=== PATIENT | male | born 1990 | race Caucasian/White ===

== ENCOUNTER 2017-01-19 13:48 | Emergency (ER) | payer OTHER ==
[~2017-01-19] VITALS: Ht 165.1 cm; Wt 72.6 kg
[2017-01-19] MEDS ORDERED: BACTRIM DS TAB1 EACH PO (15:38)
[2017-01-19] MEDS ORDERED: IBUPROFEN 800800 M1 PO (15:38)
[2017-01-19 15:53] VITALS: BP 136/87
== END 2017-01-19 15:53 | disposition home or self-care (01) ==
LOC: ER 13:48
DX: L02.212 Cutaneous abscess of back [any part, except buttock and flank] (principal); F17.210 Nicotine dependence, cigarettes, uncomplicated

== ENCOUNTER 2019-09-24 14:36 | Emergency (ER) | payer OTHER ==
[~2019-09-24] VITALS: Ht 162.6 cm; Wt 95.3 kg
[~2019-09-24 14:36] MED LIST: BACTRIM DS TAB1 EACH PO; IBUPROFEN 800800 M1 PO
[2019-09-24] MEDS ORDERED: CLEOCIN HCL150 MG PO (15:41)
[2019-09-24] MEDS ORDERED: ONDANSETRON HCL4 M2 PO (15:41)
[2019-09-24] MEDS ORDERED: NORCO 5-325 TA1 EAC1 PO (15:41)
[2019-09-24 16:06] VITALS: BP 132/88
== END 2019-09-24 16:07 | disposition home or self-care (01) ==
LOC: ER 14:36
DX: K04.7 Periapical abscess without sinus (principal); F17.210 Nicotine dependence, cigarettes, uncomplicated; Z88.1 Allergy status to other antibiotic agents